=== PATIENT | male | born 1945 | race Caucasian/White ===

== ENCOUNTER 2018-05-31 08:31 | Inpatient (IN) | payer MEDICARE, MEDICAID, OTHER ==
[2018-05-31] VITALS (10 sets, daily range): BP systolic 156–176; BP diastolic 62–85
[~2018-05-31] VITALS: Ht 180.3 cm; Wt 101.1 kg
[2018-05-31] MEDS ORDERED: normal saline 1000ml 1,000 ML IV SCH ×2 (09:00→11:00)
[2018-05-31 09:29] LABS: BASOPHILS # (AUTO) 0.2 X10'3 (0-0.2); BASOPHILS % (AUTO) 1.8 % (0-1); EOSINOPHILS # (AUTO) 0.2 X10'3 (0-0.9); EOSINOPHILS % (AUTO) 2.4 % (0-6); HEMATOCRIT 44.9 % (42.0-52.0); LYMPHOCYTES # (AUTO) 1.6 X10'3 (1.1-4.8); LYMPHOCYTES % (AUTO) 18.3 % (21-51); MEAN CORPUSCULAR HEMOGLOBIN 30.4 PG (27.0-31.0); MEAN CORPUSCULAR HGB CONC 33.4 % (33.0-36.5); MEAN CORPUSCULAR VOLUME 90.8 FL (78-98); MEAN PLATELET VOLUME 8.4 FL (7.4-10.4); MONOCYTES # (AUTO) 0.5 X10'3 (0-0.9); MONOCYTES % (AUTO) 5.6 % (2-12); NEUTROPHILS # (AUTO) 6.2 X10'3 (1.8-7.7); NEUTROPHILS % (AUTO) 71.9 % (42-75); PLATELET COUNT 244 X10'3 (140-440); RED BLOOD COUNT 4.95 X10'6 (4.70-6.10); WHITE BLOOD COUNT 8.7 X10'3 (4.5-11.0)
[2018-05-31] MEDS ORDERED: ASPI-611 PO (09:30)
[2018-05-31] MEDS ORDERED: LISI30TA4 PO (09:30)
[2018-05-31] MEDS ORDERED: INSU100V9 SQ (09:30)
[2018-05-31] MEDS ORDERED: HYDR-3972 PO (09:30)
[2018-05-31] MEDS ORDERED: AMLO5TAB PO (09:30)
[2018-05-31] MEDS ORDERED: HUM7525 SQ (09:30)
[2018-05-31 09:37] LABS: ALBUMIN 3.4 G/DL (3.4-5.0); ANION GAP 9 (8-16); BLOOD UREA NITROGEN 23 MG/DL (7-18); BUN/CREATININE RATIO 13.4 (5.4-32.0); CALCIUM 8.6 MG/DL (8.5-10.1); CHLORIDE 109 MMOL/L (99-107); CREATININE 1.72 MG/DL (0.60-1.10); GLUCOSE 95 MG/DL (70-104); POTASSIUM 4.4 MMOL/L (3.5-5.1); SODIUM 144 MMOL/L (135-145); TOTAL CARBON DIOXIDE 25.7 MMOL/L (24-32); eGFR 39 ML/MIN
[2018-05-31] MEDS ORDERED: heparin 1,000 UNITS/NS 500ml 500 ML ICATH ONE (09:55)
[2018-05-31] MEDS ORDERED: fentaNYL/PF 50MCG/1 ML 2ML syringe IV PRN (09:55)
[2018-05-31] MEDS ORDERED: LIDOcaine 1%/PF 5ML 10 MG/ML VIAL SQ ONE (09:55)
[2018-05-31] MEDS ORDERED: midazolam 2 mg/2 ml injection IV PRN (09:55)
[2018-05-31 10:01] LABS: INR 0.9 INR; PROTHROMBIN TIME 9.7 SECONDS (9.0-12.0)
[2018-05-31] MEDS ORDERED: LIDOcaine 1% (10mg/ml) 2ml vial SQ ONE (10:05)
[2018-05-31] MEDS ORDERED: midazolam 2 mg/2 ml injection ONE (10:32)
[2018-05-31] MEDS ORDERED: heparin 1,000 UNITS/NS 500ml 500 ML ONE (10:33)
[2018-05-31] MEDS ORDERED: iohexol 300mg/ml 100ml inj. ONE (10:33)
[2018-05-31] MEDS ORDERED: fentaNYL/PF 50MCG/1 ML 2ML syringe ONE ×2 (10:33→11:36)
[2018-05-31] MEDS ORDERED: diphenhydrAMINE 50 mg/ml inj ONE (12:00)
[2018-05-31] MEDS ORDERED: hydrALAZINE 20mg/ml inj. IV ONE ×2 (12:09→12:35)
[2018-05-31] MEDS ORDERED: diphenhydrAMINE 50 mg/ml inj IV ONE (12:35)
[2018-05-31] MEDS ORDERED: acetaminophen 325mg tablet PO PRN (14:50)
[2018-05-31] MEDS ORDERED: morphine 2 MG/ML inj. syringe IV PRN (14:50)
[2018-05-31] MEDS ORDERED: MESSAGE TO PHARMACY PO ONE (14:50)
[2018-05-31] MEDS ORDERED: HYDROcodone/acetaminophen 5mg/325mg tablet PO PRN (14:50)
[2018-05-31] MEDS ORDERED: dextrose 50%-water 50ml dispensing syringe IV PRN ×2 (14:50)
[2018-05-31] MEDS ORDERED: dextrose ORAL solution 15 GM/59 ML bottle PO PRN ×2 (14:50)
[2018-05-31] MEDS ORDERED: magnesium hydroxide 30ml (MOM) UD suspension PO PRN (14:50)
[2018-05-31] MEDS ORDERED: HYDROcodone/acetaminophen 10/325mg tab PO ONE (14:50)
[2018-05-31] MEDS ORDERED: glucagon, human recombinant 1mg kit SUBCUT PRN (14:50)
[2018-05-31] MEDS ORDERED: mag hydrox/Alum hydrox/simeth 30ml oral suspension PO PRN (14:50)
[2018-05-31] MEDS: normal saline 1000ml 1,000 ML IV SCH (14:57)
[2018-05-31] MEDS ORDERED: HYDROcodone/acetaminophen 10/325mg tab PO PRN (15:35)
[2018-05-31 15:56] LABS: HEMOGLOBIN A1C 7.2 % (4.5-6.2)
[2018-05-31 16:03] LABS: TROPONIN I < 0.04 NG/ML (0.0-0.05)
[2018-05-31] MEDS ORDERED: regadenoson 0.4mg/5ml syringe IV PRN (19:40)
[2018-05-31] MEDS ORDERED: aminophylline 250mg/10ml inj. IV PRN (19:40)
[2018-05-31] MEDS ORDERED: nitroGLYCERIN 0.4mg SUBLingual tab SL PRN (19:40)
[2018-05-31] MEDS ORDERED: metoprolol tartrate 1mg/ml inj IV PRN (19:40)
[2018-05-31] MEDS ORDERED: INSULIN GLARGINE HUM REC ANLOG 56 UNIT SQ SCH (20:00)
[2018-05-31] MEDS ORDERED: insulin glargine (Lantus) pen - multi-dose SQ SCH ×2 (20:00→21:00)
[2018-05-31] MEDS: insulin Lispro (HumaLOG) vial - multi-dose SQ SCH (21:16)
[2018-06-01] VITALS (11 sets, daily range): BP systolic 131–191; BP diastolic 52–73
[2018-06-01] MEDS ORDERED: hydrALAZINE 20mg/ml inj. IV PRN (01:15)
[2018-06-01] MEDS: insulin Lispro (HumaLOG) vial - multi-dose SQ SCH ×4 (01:36→17:45)
[2018-06-01] MEDS: normal saline 1000ml 1,000 ML IV SCH ×2 (01:47→15:32)
[2018-06-01] MEDS: hydrALAZINE 20mg/ml inj. IV PRN (01:47)
[2018-06-01 06:13] LABS: BASOPHILS # (AUTO) 0.1 X10'3 (0-0.2); BASOPHILS % (AUTO) 0.7 % (0-1); EOSINOPHILS # (AUTO) 0.2 X10'3 (0-0.9); EOSINOPHILS % (AUTO) 2.7 % (0-6); HEMATOCRIT 41.4 % (42.0-52.0); HEMOGLOBIN 14.2 g/dl (14.0-17.9); LYMPHOCYTES # (AUTO) 1.3 X10'3 (1.1-4.8); MEAN CORPUSCULAR HEMOGLOBIN 31.9 PG (27.0-31.0); MEAN CORPUSCULAR HGB CONC 34.2 % (33.0-36.5); MEAN CORPUSCULAR VOLUME 93.2 FL (78-98); MONOCYTES # (AUTO) 0.4 X10'3 (0-0.9); MONOCYTES % (AUTO) 4.9 % (2-12); NEUTROPHILS # (AUTO) 6.6 X10'3 (1.8-7.7); NEUTROPHILS % (AUTO) 76.7 % (42-75); PLATELET COUNT 209 X10'3 (140-440); RED BLOOD COUNT 4.44 X10'6 (4.70-6.10); WHITE BLOOD COUNT 8.6 X10'3 (4.5-11.0)
[2018-06-01 06:46] LABS: ALANINE AMINOTRANSFERASE 22 U/L (12-78); ALBUMIN 2.8 G/DL (3.4-5.0); ALBUMIN/GLOBULIN RATIO 0.9 (1.1-1.5); ALKALINE PHOSPHATASE 96 IU/L (46-116); ANION GAP 11 (8-16); ASPARTATE AMINO TRANSFERASE 17 U/L (10-37); BILIRUBIN,TOTAL 0.7 MG/DL (0.1-1.0); BLOOD UREA NITROGEN 24 MG/DL (7-18); CALCIUM 8.2 MG/DL (8.5-10.1); CHLORIDE 109 MMOL/L (99-107); CHOLESTEROL 148 MG/DL (0-200); CREATININE 1.71 MG/DL (0.60-1.10); GLUCOSE 322 MG/DL (70-104); HDL CHOLESTEROL 49 MG/DL (35-60); LDL CHOLESTEROL 85 MG/DL (50-100); POTASSIUM 4.5 MMOL/L (3.5-5.1); SODIUM 141 MMOL/L (135-145); TOTAL CARBON DIOXIDE 21.1 MMOL/L (24-32); TOTAL PROTEIN 5.9 G/DL (6.4-8.2); TRIGLYCERIDES 101 MG/DL (20-135); eGFR 40 ML/MIN
[2018-06-01] MEDS ORDERED: non-formulary drug (Amlodipine Besylate 1 TABLET) PO SCH (08:00)
[2018-06-01] MEDS ORDERED: non-formulary drug (Lisinopril 1 TAB) PO SCH (08:00)
[2018-06-01] MEDS ORDERED: non-formulary drug (Aspirin (Aspir 81) 1 TAB) PO SCH (08:00)
[2018-06-01] MEDS: aspirin 81mg tablet.DR PO SCH (08:16)
[2018-06-01] MEDS: enoxaparin 40mg/0.4ml syringe SUBCUT SCH (08:16)
[2018-06-01] MEDS: lisinopril 10 MG tablet PO SCH (08:16)
[2018-06-01] MEDS: amLODIPine 5mg tablet PO SCH (08:16)
[2018-06-01] MEDS ORDERED: insulin glargine (Lantus) pen - multi-dose SQ ONE (09:50)
[2018-06-01] MEDS ORDERED: regadenoson 0.4mg/5ml syringe IV ONE (10:00)
[2018-06-01] MEDS ORDERED: aminophylline inj. 0 ML IV ONE (10:00)
[2018-06-01] MEDS ORDERED: ondansetron/PF 4mg/2ml inj ONE (10:17)
[2018-06-01] MEDS: ondansetron/PF 4mg/2ml inj IV PRN (10:22)
[2018-06-01] MEDS: insulin glargine (Lantus) pen - multi-dose SQ SCH (20:00)
[2018-06-02] VITALS: BP 165/57
[2018-06-02] MEDS: hydrALAZINE 20mg/ml inj. IV PRN (01:15)
[2018-06-02] MEDS ORDERED: insulin Lispro (HumaLOG) vial - multi-dose SQ ONE (02:20)
[2018-06-02] MEDS: normal saline 1000ml 1,000 ML IV SCH ×2 (03:35→16:00)
[2018-06-02 04:22] VITALS: BP 158/62
[2018-06-02 06:03] LABS: BASOPHILS # (AUTO) 0.1 X10'3 (0-0.2); BASOPHILS % (AUTO) 0.7 % (0-1); EOSINOPHILS # (AUTO) 0.4 X10'3 (0-0.9); EOSINOPHILS % (AUTO) 4.1 % (0-6); HEMATOCRIT 39.8 % (42.0-52.0); HEMOGLOBIN 13.2 g/dl (14.0-17.9); LYMPHOCYTES # (AUTO) 1.4 X10'3 (1.1-4.8); LYMPHOCYTES % (AUTO) 16.6 % (21-51); MEAN CORPUSCULAR HEMOGLOBIN 30.8 PG (27.0-31.0); MEAN CORPUSCULAR HGB CONC 33.1 % (33.0-36.5); MEAN CORPUSCULAR VOLUME 93.2 FL (78-98); MEAN PLATELET VOLUME 8.6 FL (7.4-10.4); MONOCYTES # (AUTO) 0.6 X10'3 (0-0.9); NEUTROPHILS # (AUTO) 6.2 X10'3 (1.8-7.7); NEUTROPHILS % (AUTO) 71.6 % (42-75); PLATELET COUNT 221 X10'3 (140-440); RED BLOOD COUNT 4.27 X10'6 (4.70-6.10); RED CELL DISTRIBUTION WIDTH 13.8 % (11.5-14.5); WHITE BLOOD COUNT 8.6 X10'3 (4.5-11.0)
[2018-06-02 06:18] LABS: ALANINE AMINOTRANSFERASE 20 U/L (12-78); ALBUMIN 2.7 G/DL (3.4-5.0); ALBUMIN/GLOBULIN RATIO 0.9 (1.1-1.5); ALKALINE PHOSPHATASE 85 IU/L (46-116); ANION GAP 7 (8-16); ASPARTATE AMINO TRANSFERASE 12 U/L (10-37); BILIRUBIN,TOTAL 0.6 MG/DL (0.1-1.0); BLOOD UREA NITROGEN 23 MG/DL (7-18); BUN/CREATININE RATIO 14.1 (5.4-32.0); CALCIUM 8.3 MG/DL (8.5-10.1); CHLORIDE 112 MMOL/L (99-107); CREATININE 1.63 MG/DL (0.60-1.10); GLUCOSE 172 MG/DL (70-104); SODIUM 144 MMOL/L (135-145); TOTAL CARBON DIOXIDE 24.8 MMOL/L (24-32); TOTAL PROTEIN 5.6 G/DL (6.4-8.2); eGFR 42 ML/MIN
[2018-06-02 07:00] VITALS: BP 110/59
[2018-06-02] MEDS: insulin glargine (Lantus) pen - multi-dose SQ SCH ×3 (08:00→20:00)
[2018-06-02] MEDS: amLODIPine 5mg tablet PO SCH (08:26)
[2018-06-02] MEDS: aspirin 81mg tablet.DR PO SCH (08:26)
[2018-06-02] MEDS: lisinopril 10 MG tablet PO SCH (08:26)
[2018-06-02] MEDS: enoxaparin 40mg/0.4ml syringe SUBCUT SCH (08:27)
[2018-06-02] MEDS: insulin Lispro (HumaLOG) vial - multi-dose SQ SCH ×5 (09:07→17:58)
[2018-06-02 12:03] VITALS: BP 178/63
[2018-06-02 19:20] VITALS: BP 137/59
[2018-06-02] MEDS ORDERED: insulin glargine (Lantus) pen - multi-dose SQ ONE (20:40)
[2018-06-02 23:30] VITALS: BP 154/61
[2018-06-03 05:20] LABS: BASOPHILS # (AUTO) 0.1 X10'3 (0-0.2); EOSINOPHILS # (AUTO) 0.5 X10'3 (0-0.9); EOSINOPHILS % (AUTO) 6.3 % (0-6); HEMOGLOBIN 13.6 g/dl (14.0-17.9); LYMPHOCYTES # (AUTO) 1.4 X10'3 (1.1-4.8); LYMPHOCYTES % (AUTO) 18.3 % (21-51); MEAN CORPUSCULAR HGB CONC 33.2 % (33.0-36.5); MEAN CORPUSCULAR VOLUME 93.3 FL (78-98); MEAN PLATELET VOLUME 8.6 FL (7.4-10.4); MONOCYTES # (AUTO) 0.6 X10'3 (0-0.9); MONOCYTES % (AUTO) 7.4 % (2-12); NEUTROPHILS # (AUTO) 5.3 X10'3 (1.8-7.7); PLATELET COUNT 217 X10'3 (140-440); RED CELL DISTRIBUTION WIDTH 13.5 % (11.5-14.5); WHITE BLOOD COUNT 7.9 X10'3 (4.5-11.0)
[2018-06-03 05:30] LABS: ALANINE AMINOTRANSFERASE 22 U/L (12-78); ALBUMIN 2.9 G/DL (3.4-5.0); ALBUMIN/GLOBULIN RATIO 0.9 (1.1-1.5); ALKALINE PHOSPHATASE 91 IU/L (46-116); ANION GAP 7 (8-16); ASPARTATE AMINO TRANSFERASE 14 U/L (10-37); BILIRUBIN,TOTAL 0.6 MG/DL (0.1-1.0); BLOOD UREA NITROGEN 23 MG/DL (7-18); BUN/CREATININE RATIO 14.4 (5.4-32.0); CALCIUM 8.1 MG/DL (8.5-10.1); CHLORIDE 111 MMOL/L (99-107); GLUCOSE 150 MG/DL (70-104); POTASSIUM 4.1 MMOL/L (3.5-5.1); SODIUM 143 MMOL/L (135-145); TOTAL CARBON DIOXIDE 24.9 MMOL/L (24-32); eGFR 43 ML/MIN
[2018-06-03] MEDS: enoxaparin 40mg/0.4ml syringe SUBCUT SCH (06:47)
[2018-06-03 07:03] VITALS: BP 156/57
[2018-06-03] MEDS: amLODIPine 5mg tablet PO SCH (08:02)
[2018-06-03] MEDS: lisinopril 10 MG tablet PO SCH (08:02)
[2018-06-03] MEDS: aspirin 81mg tablet.DR PO SCH (08:03)
[2018-06-03 08:23] VITALS: BP 156/57
[2018-06-03] MEDS: insulin Lispro (HumaLOG) vial - multi-dose SQ SCH ×4 (08:55→21:04)
[2018-06-03 09:36] LABS: PARTIAL THROMBOPLASTIN TIME 26 SECONDS (22-32)
[2018-06-03] MEDS: insulin glargine (Lantus) pen - multi-dose SQ SCH ×2 (09:50→20:59)
[2018-06-03 11:00] VITALS: BP 173/68
[2018-06-03] MEDS: hydrALAZINE 20mg/ml inj. IV PRN (11:36)
[2018-06-03 20:00] VITALS: BP 157/58
[2018-06-03] MEDS ORDERED: ceFOXitin 2 GM ADDvantage bag 100 ML IV ONE (20:10)
[2018-06-03] MEDS: normal saline 1000ml 1,000 ML IV SCH (21:08)
[2018-06-04] VITALS (23 sets, daily range): BP systolic 90–162; BP diastolic 40–75
[2018-06-04] MEDS ORDERED: ceFOXitin 2 GM ADDvantage bag 100 ML IV ONE ×2 (05:00→15:30)
[2018-06-04 05:25] LABS: BASOPHILS # (AUTO) 0.1 X10'3 (0-0.2); BASOPHILS % (AUTO) 0.8 % (0-1); EOSINOPHILS # (AUTO) 0.5 X10'3 (0-0.9); EOSINOPHILS % (AUTO) 5.7 % (0-6); HEMATOCRIT 42.9 % (42.0-52.0); HEMOGLOBIN 14.2 g/dl (14.0-17.9); LYMPHOCYTES # (AUTO) 1.5 X10'3 (1.1-4.8); LYMPHOCYTES % (AUTO) 18.1 % (21-51); MEAN CORPUSCULAR HEMOGLOBIN 30.7 PG (27.0-31.0); MEAN CORPUSCULAR HGB CONC 33.2 % (33.0-36.5); MEAN CORPUSCULAR VOLUME 92.6 FL (78-98); MEAN PLATELET VOLUME 8.7 FL (7.4-10.4); MONOCYTES # (AUTO) 0.5 X10'3 (0-0.9); MONOCYTES % (AUTO) 6.6 % (2-12); NEUTROPHILS # (AUTO) 5.6 X10'3 (1.8-7.7); NEUTROPHILS % (AUTO) 68.8 % (42-75); PLATELET COUNT 225 X10'3 (140-440); RED BLOOD COUNT 4.64 X10'6 (4.70-6.10); RED CELL DISTRIBUTION WIDTH 13.6 % (11.5-14.5); WHITE BLOOD COUNT 8.2 X10'3 (4.5-11.0)
[2018-06-04 05:42] LABS: ALANINE AMINOTRANSFERASE 23 U/L (12-78); ALBUMIN 2.9 G/DL (3.4-5.0); ALBUMIN/GLOBULIN RATIO 0.9 (1.1-1.5); ALKALINE PHOSPHATASE 98 IU/L (46-116); ANION GAP 7 (8-16); ASPARTATE AMINO TRANSFERASE 16 U/L (10-37); BILIRUBIN,TOTAL 0.8 MG/DL (0.1-1.0); BLOOD UREA NITROGEN 26 MG/DL (7-18); CALCIUM 8.1 MG/DL (8.5-10.1); CHLORIDE 110 MMOL/L (99-107); CREATININE 1.73 MG/DL (0.60-1.10); GLUCOSE 259 MG/DL (70-104); POTASSIUM 4.5 MMOL/L (3.5-5.1); SODIUM 141 MMOL/L (135-145); TOTAL CARBON DIOXIDE 24.3 MMOL/L (24-32); TOTAL PROTEIN 6.2 G/DL (6.4-8.2); eGFR 39 ML/MIN
[2018-06-04] MEDS: amLODIPine 5mg tablet PO SCH (07:26)
[2018-06-04] MEDS: aspirin 81mg tablet.DR PO SCH (07:26)
[2018-06-04] MEDS: enoxaparin 40mg/0.4ml syringe SUBCUT SCH (07:27)
[2018-06-04] MEDS: lisinopril 10 MG tablet PO SCH (07:27)
[2018-06-04] MEDS: insulin glargine (Lantus) pen - multi-dose SQ SCH ×2 (07:47→20:42)
[2018-06-04] MEDS: insulin Lispro (HumaLOG) vial - multi-dose SQ SCH (07:55)
[2018-06-04] MEDS: normal saline 1000ml 1,000 ML IV SCH (10:50)
[2018-06-04] MEDS ORDERED: heparin 10,000 units/1 ML INJ ONE (11:20)
[2018-06-04] MEDS ORDERED: ceFAZolin 1000mg inj ONE (11:20)
[2018-06-04] MEDS ORDERED: LIDOcaine 2% (20mg/ml) 5ml vial ONE ×2 (11:59→12:41)
[2018-06-04] MEDS ORDERED: morphine /PF 1mg/ml 10ml inj. ONE (12:05)
[2018-06-04] MEDS ORDERED: MIDAZolam 1mg/ml 10ml vial ONE (12:05)
[2018-06-04] MEDS ORDERED: BUPIVAcaine/dex-water/PF 7.5 mg/ml 2ml ampul ONE (12:05)
[2018-06-04] MEDS ORDERED: tetracaine 1% (10mg/ml) pres. free inj. ONE (12:07)
[2018-06-04] MEDS ORDERED: heparin 1,000 units/ml 10ml inj ONE (12:16)
[2018-06-04] MEDS ORDERED: sevoflurane 250ml liquid IH ONE (12:16)
[2018-06-04] MEDS ORDERED: propofol inj 20 ML IV ONE ×4 (12:41→16:02)
[2018-06-04] MEDS ORDERED: diphenhydrAMINE 50 mg/ml inj ONE (12:51)
[2018-06-04] MEDS ORDERED: ringers solution, lacted 1,000 ML IV SCH (13:14)
[2018-06-04] MEDS ORDERED: fentaNYL/PF 50MCG/1 ML 2ML syringe IV PRN ×2 (13:15)
[2018-06-04] MEDS ORDERED: hydrALAZINE 20mg/ml inj. IV PRN (13:15)
[2018-06-04] MEDS ORDERED: morphine 4 MG/ML inj SYRINge IV PRN ×2 (13:15)
[2018-06-04] MEDS ORDERED: enalaprilat dihydrate 2.5mg/2ml vial IV PRN (13:15)
[2018-06-04] MEDS ORDERED: ondansetron/PF 4mg/2ml inj IV PRN (13:15)
[2018-06-04] MEDS ORDERED: labetalol 5mg/ml 20ml inj. IV ONE (14:34)
[2018-06-04] MEDS ORDERED: iohexol 300 MG/1 ML 50ml polymer ONE (15:30)
[2018-06-04] MEDS ORDERED: heparin 1,000unit/ml 10ml vial 10 ML ONE (15:50)
[2018-06-04] MEDS ORDERED: rocuronium 10mg/ml inj IV ONE (16:36)
[2018-06-04] MEDS ORDERED: insulin regular, human 10 units/0.1 ml syringe IV ONE ×2 (18:20→19:25)
[2018-06-04 18:23] LABS: INR 1.1 INR
[2018-06-04 18:25] LABS: PARTIAL THROMBOPLASTIN TIME 104 SECONDS (22-32)
[2018-06-04] MEDS ORDERED: Potassium Cl inj 20 MEQ in ringers solution, lacted 1,000 ML IV SCH (18:55)
[2018-06-04] MEDS ORDERED: flumazenil 0.1 mg/ml inj. IV ONE (19:19)
[2018-06-04] MEDS: ceFOXitin 2 GM ADDvantage bag 100 ML IV SCH (20:19)
[2018-06-04 21:15] LABS: ABG BASE EXCESS -11.6 mmol/L (-2.0-3.0); ABG HCO3 18.3 mmol/L (22.0-26.0); ABG OXYGEN SATURATION 96.6 % (95-98); ABG PCO2 (T) 54.9 mmHg (35.0-48.0); ABG PH (T) 7.132 (7.350-7.450); ABG PO2 (T) 89.3 mmHg (83-108); FLOW 5 L/min; FMetHb 0.2 % (0.3-1.12); FO2Hb 95.4 % (94-100); PATIENT TEMPERATURE 35.4; TOTAL HEMOGLOBIN 13.4 G/dl (14.0-18.0)
[2018-06-04] MEDS ORDERED: normal saline 1000ml 1,000 ML IV SCH (21:22)
[2018-06-04] MEDS ORDERED: sodium bicarbonate (8.4%) inj. 150 MEQ in sodium chloride 0.45% 850 ML IV SCH (21:22)
[2018-06-04] MEDS: sodium bicarbonate (8.4%) inj. 150 MEQ in sodium chloride 0.45% 1,000 ML IV SCH (22:23)
[2018-06-04] MEDS ORDERED: albumin (Human) 5% 250ml 250 ML IV ONE ×2 (22:45)
[2018-06-05] VITALS (22 sets, daily range): BP systolic 112–161; BP diastolic 48–72
[2018-06-05 01:10] LABS: ABG BASE EXCESS -11.9 mmol/L (-2.0-3.0); ABG HCO3 15.7 mmol/L (22.0-26.0); ABG OXYGEN SATURATION 97.8 % (95-98); ABG PH (T) 7.198 (7.350-7.450); ABG PO2 (T) 108.1 mmHg (83-108); FCOHb 0.6 % (0.5-1.5); FMetHb 0.1 % (0.3-1.12); FO2Hb 97.1 % (94-100); PATIENT TEMPERATURE 36.5; RESPIRATORY RATE 16 b/min; TOTAL HEMOGLOBIN 12.8 G/dl (14.0-18.0)
[2018-06-05] MEDS: ceFOXitin 2 GM ADDvantage bag 100 ML IV SCH ×2 (01:54→07:20)
[2018-06-05 03:04] LABS: BASOPHILS # (AUTO) 0.1 X10'3 (0-0.2); BASOPHILS % (AUTO) 0.7 % (0-1); EOSINOPHILS # (AUTO) 0.2 X10'3 (0-0.9); EOSINOPHILS % (AUTO) 1.4 % (0-6); HEMATOCRIT 34.9 % (42.0-52.0); HEMOGLOBIN 11.5 g/dl (14.0-17.9); LYMPHOCYTES # (AUTO) 0.6 X10'3 (1.1-4.8); LYMPHOCYTES % (AUTO) 5.1 % (21-51); MEAN CORPUSCULAR HGB CONC 32.9 % (33.0-36.5); MEAN CORPUSCULAR VOLUME 94.2 FL (78-98); MEAN PLATELET VOLUME 8.6 FL (7.4-10.4); MONOCYTES # (AUTO) 0.5 X10'3 (0-0.9); MONOCYTES % (AUTO) 4.6 % (2-12); NEUTROPHILS # (AUTO) 10.5 X10'3 (1.8-7.7); NEUTROPHILS % (AUTO) 88.2 % (42-75); PLATELET COUNT 182 X10'3 (140-440); RED CELL DISTRIBUTION WIDTH 13.7 % (11.5-14.5); WHITE BLOOD COUNT 11.9 X10'3 (4.5-11.0)
[2018-06-05 03:18] LABS: ALANINE AMINOTRANSFERASE 19 U/L (12-78); ALBUMIN 2.9 G/DL (3.4-5.0); ALBUMIN/GLOBULIN RATIO 1.2 (1.1-1.5); ALKALINE PHOSPHATASE 79 IU/L (46-116); ANION GAP 13 (8-16); ASPARTATE AMINO TRANSFERASE 14 U/L (10-37); BILIRUBIN,TOTAL 0.6 MG/DL (0.1-1.0); BLOOD UREA NITROGEN 33 MG/DL (7-18); BUN/CREATININE RATIO 12.3 (5.4-32.0); CALCIUM 6.9 MG/DL (8.5-10.1); CHLORIDE 110 MMOL/L (99-107); CREATININE 2.68 MG/DL (0.60-1.10); GLUCOSE 277 MG/DL (70-104); POTASSIUM 5.1 MMOL/L (3.5-5.1); SODIUM 143 MMOL/L (135-145); TOTAL CARBON DIOXIDE 19.8 MMOL/L (24-32); TOTAL PROTEIN 5.3 G/DL (6.4-8.2); eGFR 24 ML/MIN
[2018-06-05] MEDS ORDERED: albumin (Human) 5% 250ml 250 ML IV ONE ×3 (04:15)
[2018-06-05] MEDS: albumin (Human) 5% 250ml 250 ML IV SCH ×4 (04:27→07:09)
[2018-06-05] MEDS: lisinopril 10 MG tablet PO SCH (07:14)
[2018-06-05] MEDS: amLODIPine 5mg tablet PO SCH (07:14)
[2018-06-05] MEDS: clopidogrel 75mg tablet PO SCH (07:14)
[2018-06-05] MEDS: aspirin 81mg tablet.DR PO SCH (07:15)
[2018-06-05] MEDS: enoxaparin 40mg/0.4ml syringe SUBCUT SCH (07:15)
[2018-06-05] MEDS: HYDROmorphone 1 mg/ml syringe IV PRN ×2 (07:16→12:42)
[2018-06-05] MEDS: insulin glargine (Lantus) pen - multi-dose SQ SCH ×2 (07:37→23:33)
[2018-06-05] MEDS: insulin Lispro (HumaLOG) vial - multi-dose SQ SCH ×2 (07:38→19:29)
[2018-06-05] MEDS: sodium bicarbonate (8.4%) inj. 150 MEQ in sodium chloride 0.45% 1,000 ML IV SCH ×2 (10:40→22:17)
[2018-06-05] MEDS: ondansetron/PF 4mg/2ml inj IV PRN ×3 (12:42→23:53)
[2018-06-05] MEDS: HYDROcodone/acetaminophen 10/325mg tab PO PRN ×2 (13:23→18:10)
[2018-06-06 03:00] VITALS: BP 92/62
[2018-06-06] MEDS: ceFOXitin 2 GM ADDvantage bag 100 ML IV SCH ×3 (04:04→13:58)
[2018-06-06] MEDS: HYDROmorphone 1 mg/ml syringe IV PRN (04:11)
[2018-06-06 05:25] LABS: ANION GAP 10 (8-16); BLOOD UREA NITROGEN 36 MG/DL (7-18); BUN/CREATININE RATIO 13.3 (5.4-32.0); CALCIUM 6.8 MG/DL (8.5-10.1); CHLORIDE 109 MMOL/L (99-107); GLUCOSE 153 MG/DL (70-104); LACTATE DEHYDROGENASE 132 U/L (85-227); POTASSIUM 3.8 MMOL/L (3.5-5.1); SODIUM 146 MMOL/L (135-145); TOTAL CARBON DIOXIDE 27.2 MMOL/L (24-32); eGFR 23 ML/MIN
[2018-06-06 06:00] VITALS: BP 140/59
[2018-06-06] MEDS: aspirin 81mg tablet.DR PO SCH (07:23)
[2018-06-06] MEDS: amLODIPine 5mg tablet PO SCH (07:24)
[2018-06-06] MEDS: clopidogrel 75mg tablet PO SCH (07:25)
[2018-06-06] MEDS: HYDROcodone/acetaminophen 10/325mg tab PO PRN ×3 (07:28→22:14)
[2018-06-06] MEDS: lisinopril 10 MG tablet PO SCH (07:29)
[2018-06-06] MEDS: enoxaparin 30mg/0.3ml syringe SUBCUT SCH (07:32)
[2018-06-06] MEDS: insulin glargine (Lantus) pen - multi-dose SQ SCH ×3 (07:39→21:22)
[2018-06-06] MEDS: sodium bicarbonate (8.4%) inj. 150 MEQ in sodium chloride 0.45% 1,000 ML IV SCH (08:15)
[2018-06-06] MEDS: insulin Lispro (HumaLOG) vial - multi-dose SQ SCH ×3 (09:33→13:55)
[2018-06-06] MEDS: ondansetron/PF 4mg/2ml inj IV PRN ×2 (09:46→16:38)
[2018-06-06 11:00] VITALS: BP 155/63
[2018-06-06 11:22] VITALS: BP 158/63
[2018-06-06 15:00] VITALS: BP 158/56
[2018-06-06 18:00] VITALS: BP 162/77
[2018-06-06] MEDS: lactobacillus rhamnosus 10,000 MMU CELLS/CAPSULE PO SCH (20:24)
[2018-06-06] MEDS: magnesium hydroxide 30ml (MOM) UD suspension PO SCH (20:24)
[2018-06-06] MEDS: proCHLORperazine 10 MG/2 ml inj IV PRN (20:26)
[2018-06-07] VITALS: BP 160/58
[2018-06-07 05:35] LABS: BASOPHILS % (AUTO) 0.2 % (0-1); EOSINOPHILS # (AUTO) 0.2 X10'3 (0-0.9); EOSINOPHILS % (AUTO) 1.1 % (0-6); HEMATOCRIT 34.7 % (42.0-52.0); HEMOGLOBIN 11.5 g/dl (14.0-17.9); LYMPHOCYTES # (AUTO) 1.5 X10'3 (1.1-4.8); LYMPHOCYTES % (AUTO) 10.1 % (21-51); MEAN CORPUSCULAR HEMOGLOBIN 31.1 PG (27.0-31.0); MEAN CORPUSCULAR VOLUME 94.1 FL (78-98); MEAN PLATELET VOLUME 9.1 FL (7.4-10.4); MONOCYTES # (AUTO) 1.1 X10'3 (0-0.9); MONOCYTES % (AUTO) 7.3 % (2-12); NEUTROPHILS # (AUTO) 11.9 X10'3 (1.8-7.7); NEUTROPHILS % (AUTO) 81.3 % (42-75); PLATELET COUNT 208 X10'3 (140-440); RED BLOOD COUNT 3.69 X10'6 (4.70-6.10); RED CELL DISTRIBUTION WIDTH 13.9 % (11.5-14.5); WHITE BLOOD COUNT 14.6 X10'3 (4.5-11.0)
[2018-06-07 06:03] LABS: ALBUMIN 2.8 G/DL (3.4-5.0); ANION GAP 11 (8-16); BLOOD UREA NITROGEN 37 MG/DL (7-18); BUN/CREATININE RATIO 12.5 (5.4-32.0); CALCIUM 7.7 MG/DL (8.5-10.1); CHLORIDE 109 MMOL/L (99-107); CREATININE 2.96 MG/DL (0.60-1.10); GLUCOSE 132 MG/DL (70-104); POTASSIUM 3.6 MMOL/L (3.5-5.1); SODIUM 148 MMOL/L (135-145); eGFR 21 ML/MIN
[2018-06-07 08:00] VITALS: BP 163/63
[2018-06-07] MEDS: proCHLORperazine 10 MG/2 ml inj IV PRN (08:04)
[2018-06-07] MEDS: insulin glargine (Lantus) pen - multi-dose SQ SCH ×2 (08:11→22:01)
[2018-06-07] MEDS: enoxaparin 30mg/0.3ml syringe SUBCUT SCH (08:17)
[2018-06-07] MEDS: lisinopril 10 MG tablet PO SCH (08:43)
[2018-06-07] MEDS: clopidogrel 75mg tablet PO SCH (08:43)
[2018-06-07] MEDS: aspirin 81mg tablet.DR PO SCH (08:43)
[2018-06-07] MEDS: magnesium hydroxide 30ml (MOM) UD suspension PO SCH (08:43)
[2018-06-07] MEDS: lactobacillus rhamnosus 10,000 MMU CELLS/CAPSULE PO SCH ×2 (08:43→21:41)
[2018-06-07] MEDS: amLODIPine 5mg tablet PO SCH (08:43)
[2018-06-07 11:00] VITALS: BP 185/72
[2018-06-07] MEDS: hydrALAZINE 20mg/ml inj. IV PRN (11:44)
[2018-06-07] MEDS: HYDROcodone/acetaminophen 10/325mg tab PO PRN ×2 (11:44→21:43)
[2018-06-07] MEDS: insulin Lispro (HumaLOG) vial - multi-dose SQ SCH (13:15)
[2018-06-07 13:29] LABS: A/G RATIO 1.6 (0.7-1.7); ALBUMIN 3.3 g/dL (2.9-4.4); BETA GLOBULIN 0.6 g/dL (0.7-1.3); GAMMA GLOBULIN 0.5 g/dL (0.4-1.8); GLOBULIN, TOTAL 2.1 g/dL (2.2-3.9); M-SPIKE Not Observed g/dL (Not Observed); PROTEIN, TOTAL, SERUM 5.4 g/dL (6.0-8.5)
[2018-06-07] MEDS ORDERED: amLODIPine 5mg tablet PO ONE (16:05)
[2018-06-07] MEDS: sodium chloride 0.45% 1,000 ML IV SCH (16:17)
[2018-06-07 19:10] LABS: ANTINUCLEAR ANTIBODIES Negative (Negative)
[2018-06-07 20:00] VITALS: BP 178/66
[2018-06-07] MEDS: cloNIDine 0.1 mg tablet PO SCH (21:42)
[2018-06-07] MEDS: ondansetron/PF 4mg/2ml inj IV PRN (21:48)
[2018-06-08] VITALS: BP 148/61
[2018-06-08] MEDS: sodium chloride 0.45% 1,000 ML IV SCH (03:48)
[2018-06-08 07:45] VITALS: BP 152/70
[2018-06-08] MEDS: enoxaparin 30mg/0.3ml syringe SUBCUT SCH (09:01)
[2018-06-08] MEDS: amLODIPine 5mg tablet PO SCH (09:02)
[2018-06-08] MEDS: insulin Lispro (HumaLOG) vial - multi-dose SQ SCH ×2 (09:14→13:36)
[2018-06-08] MEDS: lactobacillus rhamnosus 10,000 MMU CELLS/CAPSULE PO SCH ×2 (09:16→21:07)
[2018-06-08] MEDS: insulin glargine (Lantus) pen - multi-dose SQ SCH ×2 (09:16→19:29)
[2018-06-08] MEDS: cloNIDine 0.1 mg tablet PO SCH ×3 (09:16→21:07)
[2018-06-08] MEDS: clopidogrel 75mg tablet PO SCH (09:17)
[2018-06-08] MEDS: aspirin 81mg tablet.DR PO SCH (09:17)
[2018-06-08] MEDS ORDERED: potassium Cl 20 mEq SR tablet PO STA (10:35)
[2018-06-08] MEDS ORDERED: furosemide 40mg tablet PO ONE (10:35)
[2018-06-08] MEDS: HYDROcodone/acetaminophen 10/325mg tab PO PRN (12:03)
[2018-06-08 12:27] VITALS: BP 177/72
[2018-06-08] MEDS: ondansetron/PF 4mg/2ml inj IV PRN (13:31)
[2018-06-08 13:56] VITALS: BP 103/61
[2018-06-08 20:00] VITALS: BP 164/64
[2018-06-09] VITALS: BP 133/57
[2018-06-09] MEDS ORDERED: furosemide 10 MG/1 ML 10ml inj IV ONE (01:55)
[2018-06-09 07:17] VITALS: BP 110/77
[2018-06-09] MEDS: HYDROcodone/acetaminophen 10/325mg tab PO PRN ×2 (07:58→12:18)
[2018-06-09] MEDS: clopidogrel 75mg tablet PO SCH (07:58)
[2018-06-09] MEDS: amLODIPine 5mg tablet PO SCH (07:59)
[2018-06-09] MEDS: aspirin 81mg tablet.DR PO SCH (07:59)
[2018-06-09] MEDS: lactobacillus rhamnosus 10,000 MMU CELLS/CAPSULE PO SCH ×2 (07:59→21:15)
[2018-06-09] MEDS: cloNIDine 0.1 mg tablet PO SCH (08:00)
[2018-06-09] MEDS: enoxaparin 30mg/0.3ml syringe SUBCUT SCH (08:01)
[2018-06-09] MEDS: insulin glargine (Lantus) pen - multi-dose SQ SCH ×2 (08:07→21:19)
[2018-06-09 09:39] LABS: BASOPHILS % (AUTO) 0.2 % (0-1); EOSINOPHILS # (AUTO) 0.3 X10'3 (0-0.9); EOSINOPHILS % (AUTO) 3.3 % (0-6); HEMATOCRIT 35.2 % (42.0-52.0); HEMOGLOBIN 11.6 g/dl (14.0-17.9); LYMPHOCYTES # (AUTO) 0.7 X10'3 (1.1-4.8); LYMPHOCYTES % (AUTO) 6.6 % (21-51); MEAN CORPUSCULAR HEMOGLOBIN 30.7 PG (27.0-31.0); MEAN CORPUSCULAR HGB CONC 32.9 % (33.0-36.5); MEAN CORPUSCULAR VOLUME 93.5 FL (78-98); MEAN PLATELET VOLUME 8.9 FL (7.4-10.4); MONOCYTES # (AUTO) 0.8 X10'3 (0-0.9); MONOCYTES % (AUTO) 7.9 % (2-12); NEUTROPHILS # (AUTO) 8.1 X10'3 (1.8-7.7); PLATELET COUNT 267 X10'3 (140-440); RED BLOOD COUNT 3.76 X10'6 (4.70-6.10); RED CELL DISTRIBUTION WIDTH 13.9 % (11.5-14.5); WHITE BLOOD COUNT 9.9 X10'3 (4.5-11.0)
[2018-06-09 09:49] LABS: ALBUMIN 2.7 G/DL (3.4-5.0); ANION GAP 11 (8-16); BLOOD UREA NITROGEN 46 MG/DL (7-18); BUN/CREATININE RATIO 16.5 (5.4-32.0); CALCIUM 7.9 MG/DL (8.5-10.1); CHLORIDE 101 MMOL/L (99-107); CREATININE 2.78 MG/DL (0.60-1.10); GLUCOSE 256 MG/DL (70-104); MAGNESIUM 2.6 MG/DL (1.5-2.4); PHOSPHORUS 2.7 MG/DL (2.3-4.5); POTASSIUM 3.5 MMOL/L (3.5-5.1); SODIUM 139 MMOL/L (135-145); eGFR 23 ML/MIN
[2018-06-09 12:05] VITALS: BP 167/71
[2018-06-09] MEDS: insulin Lispro (HumaLOG) vial - multi-dose SQ SCH ×2 (13:49→19:09)
[2018-06-09] MEDS ORDERED: furosemide 40mg/4ml inj IV ONE (14:10)
[2018-06-09 14:55] VITALS: BP 156/56
[2018-06-09 20:00] VITALS: BP 169/62
[2018-06-10] VITALS: BP 154/50
[2018-06-10] MEDS: HYDROcodone/acetaminophen 10/325mg tab PO PRN (05:04)
[2018-06-10 05:13] LABS: BASOPHILS # (AUTO) 0.1 X10'3 (0-0.2); BASOPHILS % (AUTO) 0.8 % (0-1); EOSINOPHILS # (AUTO) 0.3 X10'3 (0-0.9); EOSINOPHILS % (AUTO) 3.3 % (0-6); HEMATOCRIT 32.5 % (42.0-52.0); HEMOGLOBIN 10.7 g/dl (14.0-17.9); LYMPHOCYTES # (AUTO) 0.7 X10'3 (1.1-4.8); LYMPHOCYTES % (AUTO) 8.2 % (21-51); MEAN CORPUSCULAR HEMOGLOBIN 30.4 PG (27.0-31.0); MEAN CORPUSCULAR HGB CONC 32.8 % (33.0-36.5); MEAN CORPUSCULAR VOLUME 92.7 FL (78-98); MEAN PLATELET VOLUME 8.7 FL (7.4-10.4); MONOCYTES % (AUTO) 10.8 % (2-12); NEUTROPHILS # (AUTO) 6.9 X10'3 (1.8-7.7); NEUTROPHILS % (AUTO) 76.9 % (42-75); PLATELET COUNT 257 X10'3 (140-440); RED CELL DISTRIBUTION WIDTH 13.5 % (11.5-14.5); WHITE BLOOD COUNT 8.9 X10'3 (4.5-11.0)
[2018-06-10 05:23] LABS: ALBUMIN 2.4 G/DL (3.4-5.0); ANION GAP 8 (8-16); BLOOD UREA NITROGEN 45 MG/DL (7-18); BUN/CREATININE RATIO 18.1 (5.4-32.0); CALCIUM 7.7 MG/DL (8.5-10.1); CHLORIDE 105 MMOL/L (99-107); CREATININE 2.48 MG/DL (0.60-1.10); GLUCOSE 132 MG/DL (70-104); MAGNESIUM 2.7 MG/DL (1.5-2.4); PHOSPHORUS 3.4 MG/DL (2.3-4.5); POTASSIUM 3.4 MMOL/L (3.5-5.1); SODIUM 141 MMOL/L (135-145); TOTAL CARBON DIOXIDE 27.7 MMOL/L (24-32); eGFR 26 ML/MIN
[2018-06-10 07:00] VITALS: BP 151/48
[2018-06-10] MEDS: aspirin 81mg tablet.DR PO SCH (07:43)
[2018-06-10] MEDS: clopidogrel 75mg tablet PO SCH (07:44)
[2018-06-10] MEDS: furosemide 20MG tablet PO SCH (07:44)
[2018-06-10] MEDS: lactobacillus rhamnosus 10,000 MMU CELLS/CAPSULE PO SCH ×2 (07:44→19:17)
[2018-06-10] MEDS: amLODIPine 5mg tablet PO SCH (07:44)
[2018-06-10] MEDS: enoxaparin 30mg/0.3ml syringe SUBCUT SCH (08:00)
[2018-06-10] MEDS: insulin glargine (Lantus) pen - multi-dose SQ SCH ×2 (08:03→19:07)
[2018-06-10] MEDS: insulin Lispro (HumaLOG) vial - multi-dose SQ SCH ×3 (08:12→19:06)
[2018-06-10 12:00] VITALS: BP 184/58
[2018-06-10] MEDS: LORazepam 0.5 MG tablet PO PRN ×2 (14:52→19:17)
[2018-06-10 19:00] VITALS: BP 178/78
[2018-06-10 21:00] VITALS: BP 162/76
[2018-06-11] VITALS: BP 168/54
[2018-06-11 00:56] VITALS: BP_SYST 168; BP_DIAS 53; BP_DIAS 56
[2018-06-11] MEDS: hydrALAZINE 20mg/ml inj. IV PRN (00:58)
[2018-06-11] MEDS: HYDROcodone/acetaminophen 10/325mg tab PO PRN ×2 (01:16→08:59)
[2018-06-11 01:50] VITALS: BP 178/68
[2018-06-11] MEDS ORDERED: hydrALAZINE 20mg/ml inj. IV ONE (02:10)
[2018-06-11] MEDS: LORazepam 0.5 MG tablet PO PRN ×3 (02:32→20:26)
[2018-06-11 05:31] LABS: BASOPHILS % (AUTO) 0.3 % (0-1); EOSINOPHILS # (AUTO) 0.1 X10'3 (0-0.9); EOSINOPHILS % (AUTO) 1.3 % (0-6); HEMATOCRIT 34.7 % (42.0-52.0); HEMOGLOBIN 11.5 g/dl (14.0-17.9); LYMPHOCYTES # (AUTO) 0.9 X10'3 (1.1-4.8); LYMPHOCYTES % (AUTO) 8.8 % (21-51); MEAN CORPUSCULAR HEMOGLOBIN 30.8 PG (27.0-31.0); MEAN CORPUSCULAR HGB CONC 33.1 % (33.0-36.5); MEAN CORPUSCULAR VOLUME 93.1 FL (78-98); MEAN PLATELET VOLUME 8.6 FL (7.4-10.4); MONOCYTES % (AUTO) 10.6 % (2-12); NEUTROPHILS # (AUTO) 7.8 X10'3 (1.8-7.7); PLATELET COUNT 330 X10'3 (140-440); RED BLOOD COUNT 3.73 X10'6 (4.70-6.10); RED CELL DISTRIBUTION WIDTH 13.8 % (11.5-14.5); WHITE BLOOD COUNT 9.9 X10'3 (4.5-11.0)
[2018-06-11 05:49] LABS: ALBUMIN 2.5 G/DL (3.4-5.0); ANION GAP 12 (8-16); BLOOD UREA NITROGEN 41 MG/DL (7-18); BUN/CREATININE RATIO 17.4 (5.4-32.0); CALCIUM 7.9 MG/DL (8.5-10.1); CHLORIDE 107 MMOL/L (99-107); CREATININE 2.35 MG/DL (0.60-1.10); GLUCOSE 68 MG/DL (70-104); MAGNESIUM 2.5 MG/DL (1.5-2.4); PHOSPHORUS 3.3 MG/DL (2.3-4.5); POTASSIUM 3.1 MMOL/L (3.5-5.1); SODIUM 146 MMOL/L (135-145); TOTAL CARBON DIOXIDE 27.5 MMOL/L (24-32); eGFR 27 ML/MIN
[2018-06-11 07:23] VITALS: BP 167/58
[2018-06-11] MEDS: amLODIPine 5mg tablet PO SCH (08:59)
[2018-06-11] MEDS: furosemide 20MG tablet PO SCH (08:59)
[2018-06-11] MEDS: aspirin 81mg tablet.DR PO SCH (08:59)
[2018-06-11] MEDS: clopidogrel 75mg tablet PO SCH (08:59)
[2018-06-11] MEDS: lactobacillus rhamnosus 10,000 MMU CELLS/CAPSULE PO SCH ×2 (08:59→20:10)
[2018-06-11] MEDS: enoxaparin 30mg/0.3ml syringe SUBCUT SCH (09:00)
[2018-06-11] MEDS: insulin glargine (Lantus) pen - multi-dose SQ SCH ×2 (09:14→20:19)
[2018-06-11 12:04] VITALS: BP 189/68
[2018-06-11] MEDS ORDERED: HYDROchlorothiazide 25mg tablet PO SCH (12:38)
[2018-06-11] MEDS ORDERED: nitroGLYCERIN 0.4mg/hour patch TD SCH (12:41)
[2018-06-11] MEDS: insulin Lispro (HumaLOG) vial - multi-dose SQ SCH ×2 (13:43→19:26)
[2018-06-11] MEDS ORDERED: potassium Cl 40MEQ/NS 500ml 500 ML IV PRN ×2 (14:25)
[2018-06-11] MEDS ORDERED: potassium Cl 20 mEq SR tablet PO PRN (14:25)
[2018-06-11] MEDS ORDERED: magnesium Cl slow-release 64mg tablet PO PRN (14:25)
[2018-06-11] MEDS ORDERED: magnesium 4gm in 100ml NS 100 ML IV PRN (14:25)
[2018-06-11] MEDS: potassium Cl 20 mEq SR tablet PO PRN ×2 (15:23→20:10)
[2018-06-11] MEDS: hyDRALAzine 10mg tablet PO SCH (15:23)
[2018-06-11 20:00] VITALS: BP 119/59
[2018-06-12] VITALS: BP 120/63
[2018-06-12 00:15] VITALS: BP 165/75
[2018-06-12] MEDS: LORazepam 0.5 MG tablet PO PRN ×3 (00:33→19:36)
[2018-06-12] MEDS: hyDRALAzine 10mg tablet PO SCH ×2 (00:33→08:49)
[2018-06-12] MEDS: potassium Cl 20 mEq SR tablet PO PRN (00:33)
[2018-06-12 05:39] LABS: BASOPHILS % (AUTO) 0.3 % (0-1); EOSINOPHILS # (AUTO) 0.4 X10'3 (0-0.9); EOSINOPHILS % (AUTO) 4.4 % (0-6); HEMATOCRIT 34.2 % (42.0-52.0); HEMOGLOBIN 11.2 g/dl (14.0-17.9); LYMPHOCYTES # (AUTO) 1.1 X10'3 (1.1-4.8); LYMPHOCYTES % (AUTO) 12.2 % (21-51); MEAN CORPUSCULAR HEMOGLOBIN 30.6 PG (27.0-31.0); MEAN CORPUSCULAR HGB CONC 32.7 % (33.0-36.5); MEAN CORPUSCULAR VOLUME 93.6 FL (78-98); MEAN PLATELET VOLUME 8.6 FL (7.4-10.4); MONOCYTES # (AUTO) 0.9 X10'3 (0-0.9); MONOCYTES % (AUTO) 9.8 % (2-12); NEUTROPHILS # (AUTO) 6.8 X10'3 (1.8-7.7); NEUTROPHILS % (AUTO) 73.3 % (42-75); PLATELET COUNT 357 X10'3 (140-440); RED BLOOD COUNT 3.66 X10'6 (4.70-6.10); RED CELL DISTRIBUTION WIDTH 13.7 % (11.5-14.5); WHITE BLOOD COUNT 9.3 X10'3 (4.5-11.0)
[2018-06-12 05:51] LABS: ALBUMIN 2.5 G/DL (3.4-5.0); ANION GAP 7 (8-16); BLOOD UREA NITROGEN 38 MG/DL (7-18); CALCIUM 8.1 MG/DL (8.5-10.1); CHLORIDE 107 MMOL/L (99-107); CREATININE 2.38 MG/DL (0.60-1.10); GLUCOSE 204 MG/DL (70-104); MAGNESIUM 2.5 MG/DL (1.5-2.4); PHOSPHORUS 3.9 MG/DL (2.3-4.5); SODIUM 144 MMOL/L (135-145); TOTAL CARBON DIOXIDE 29.8 MMOL/L (24-32); eGFR 27 ML/MIN
[2018-06-12 07:30] VITALS: BP 155/52
[2018-06-12] MEDS ORDERED: NIFEdipine XL 30mg tablet PO SCH (08:00)
[2018-06-12] MEDS: insulin Lispro (HumaLOG) vial - multi-dose SQ SCH ×4 (08:43→22:31)
[2018-06-12] MEDS: insulin glargine (Lantus) pen - multi-dose SQ SCH ×2 (08:45→21:55)
[2018-06-12] MEDS: enoxaparin 30mg/0.3ml syringe SUBCUT SCH (08:46)
[2018-06-12] MEDS: amLODIPine 5mg tablet PO SCH (08:48)
[2018-06-12] MEDS: clopidogrel 75mg tablet PO SCH (08:49)
[2018-06-12] MEDS: lactobacillus rhamnosus 10,000 MMU CELLS/CAPSULE PO SCH ×2 (08:50→19:36)
[2018-06-12] MEDS: aspirin 81mg tablet.DR PO SCH (08:50)
[2018-06-12] MEDS: HYDROcodone/acetaminophen 10/325mg tab PO PRN (08:58)
[2018-06-12 11:10] VITALS: BP 155/52
[2018-06-12] MEDS ORDERED: sodium chloride 0.45% 1,000 ML IV SCH (12:45)
[2018-06-12] MEDS ORDERED: nitroGLYCERIN 0.4mg/hour patch TD SCH (13:00)
[2018-06-12] MEDS: hydrALAZINE 25 MG tablet PO SCH (15:58)
[2018-06-12 18:00] VITALS: BP 142/48
[2018-06-13] VITALS: BP 140/50
[2018-06-13] MEDS: hydrALAZINE 25 MG tablet PO SCH ×2 (00:44→08:15)
[2018-06-13 05:25] LABS: BASOPHILS % (AUTO) 0.4 % (0-1); EOSINOPHILS # (AUTO) 0.4 X10'3 (0-0.9); EOSINOPHILS % (AUTO) 4.1 % (0-6); HEMATOCRIT 32.1 % (42.0-52.0); HEMOGLOBIN 10.6 g/dl (14.0-17.9); LYMPHOCYTES # (AUTO) 1.2 X10'3 (1.1-4.8); LYMPHOCYTES % (AUTO) 11.9 % (21-51); MEAN CORPUSCULAR HEMOGLOBIN 30.7 PG (27.0-31.0); MEAN CORPUSCULAR VOLUME 93.1 FL (78-98); MEAN PLATELET VOLUME 8.3 FL (7.4-10.4); MONOCYTES # (AUTO) 0.8 X10'3 (0-0.9); MONOCYTES % (AUTO) 8.3 % (2-12); NEUTROPHILS # (AUTO) 7.4 X10'3 (1.8-7.7); NEUTROPHILS % (AUTO) 75.3 % (42-75); PLATELET COUNT 353 X10'3 (140-440); RED BLOOD COUNT 3.44 X10'6 (4.70-6.10); RED CELL DISTRIBUTION WIDTH 13.2 % (11.5-14.5); WHITE BLOOD COUNT 9.8 X10'3 (4.5-11.0)
[2018-06-13 06:00] LABS: ALBUMIN 2.4 G/DL (3.4-5.0); ANION GAP 8 (8-16); BLOOD UREA NITROGEN 39 MG/DL (7-18); BUN/CREATININE RATIO 15.1 (5.4-32.0); CALCIUM 7.6 MG/DL (8.5-10.1); CHLORIDE 105 MMOL/L (99-107); CREATININE 2.58 MG/DL (0.60-1.10); GLUCOSE 257 MG/DL (70-104); MAGNESIUM 2.4 MG/DL (1.5-2.4); PHOSPHORUS 3.7 MG/DL (2.3-4.5); POTASSIUM 4.1 MMOL/L (3.5-5.1); SODIUM 143 MMOL/L (135-145); TOTAL CARBON DIOXIDE 30.4 MMOL/L (24-32); eGFR 25 ML/MIN
[2018-06-13 07:00] VITALS: BP 156/55
[2018-06-13 07:29] VITALS: BP 159/56
[2018-06-13] MEDS: clopidogrel 75mg tablet PO SCH (08:14)
[2018-06-13] MEDS: lactobacillus rhamnosus 10,000 MMU CELLS/CAPSULE PO SCH (08:14)
[2018-06-13] MEDS: aspirin 81mg tablet.DR PO SCH (08:15)
[2018-06-13] MEDS: amLODIPine 5mg tablet PO SCH (08:15)
[2018-06-13] MEDS: enoxaparin 30mg/0.3ml syringe SUBCUT SCH (08:17)
[2018-06-13] MEDS: LORazepam 0.5 MG tablet PO PRN (08:17)
[2018-06-13] MEDS: insulin glargine (Lantus) pen - multi-dose SQ SCH (08:43)
[2018-06-13] MEDS: insulin Lispro (HumaLOG) vial - multi-dose SQ SCH (08:48)
== END 2018-06-13 11:14 | DRG 252 ==
LOC: SSTAY O 08:31 → EDSTATUS 16:15 → SUR 3N 16:30 → PACU 06-04 11:06 → ICU 2S 06-04 19:45 → PCU 3S 06-05 19:55 → SUR 3N 06-06 19:28
PROVIDERS: ADMIT Surgery; ATTEND Surgery
PROC: 04CK0ZZ Extirpation of Matter from Right Femoral Artery, Open Approach (ICD-10-PCS; 2018-06-04)
PROC: 04UK0KZ Supplement Right Femoral Artery with Nonautologous Tissue Substitute, Open Approach (ICD-10-PCS; 2018-06-04)
PROC: 06BQ3ZZ Excision of Left Saphenous Vein, Percutaneous Approach (ICD-10-PCS; 2018-06-04)
PROC: 041K09M Bypass Right Femoral Artery to Peroneal Artery with Autologous Venous Tissue, Open Approach (ICD-10-PCS; principal; 2018-06-04 12:21)
DX: E11.51 Type 2 diabetes mellitus with diabetic peripheral angiopathy without gangrene (principal); N17.0 Acute kidney failure with tubular necrosis; I12.9 Hypertensive chronic kidney disease with stage 1 through stage 4 chronic kidney disease, or unspecified chronic kidney disease; E11.22 Type 2 diabetes mellitus with diabetic chronic kidney disease; N18.3 Chronic kidney disease, stage 3 (moderate); E87.6 Hypokalemia; I70.213 Atherosclerosis of native arteries of extremities with intermittent claudication, bilateral legs; N14.2 Nephropathy induced by unspecified drug, medicament or biological substance; E78.5 Hyperlipidemia, unspecified
CPT/HCPCS: 36246; 36415; 36600; 71045; 73590; 75716; 76001; 76937; 78452; 80048; 80053; 80061; 82803; 82948; 83036; 83615; 83735; 84100; 84155; 84165; 84484; 85018; 85025; 85610; 85730; 86038; 86885; 86900; 86901; 87070; 93005; 93017; 93306; 93922; 93970; 94660; 94760; 97110; 97116; 97162; 97530; 99152; 99153; A4620; A6219; A6255; A6258; A6454; A7000; A9500; C1758; C1760; C1768; C1769; C1894; J0280; J0360; J0690; J0694; J0780; J1170; J1200; J1644; J1650; J1815; J1940; J2001; J2250; J2274; J2405; J2704; J3010; J3480; J3490; J7030; J7120; P9045; Q9967